=== PATIENT | female | born 2000 | race African-American/Black ===

== ENCOUNTER 2019-01-28 14:33 | Emergency (ER) | payer MEDICAID ==
[~2019-01-28] VITALS: Ht 160 cm; Wt 61.0 kg
[2019-01-28 14:44] VITALS: BP 117/87
[2019-01-28] MEDS ORDERED: ACETAMINOPHEN 325MG TABLET PO STA (17:05)
[2019-01-28 17:36] LABS: CLARITY URINE CLOUDY (CLEAR); COLOR URINE YELLOW (YELLOW); KETONES URINE NEGATIVE (NEGATIVE); LEUKOCYTE ESTERASE URINE 3+ (NEGATIVE); NITRITE URINE NEGATIVE (NEGATIVE); OCCULT BLOOD URINE NEGATIVE (NEGATIVE); PH URINE 6.5 (4.5-8.0); PROTEIN URINE NEGATIVE (NEGATIVE); SPECIFIC GRAVITY URINE 1.015 (1.005-1.030); UROBILINOGEN URINE 0.2 E.U./dL (0.2-1.0)
== END 2019-01-28 18:42 | disposition home or self-care (01) ==
LOC: ER 14:33 → EDSEX 14:33 → ER 18:42
DX: N39.0 Urinary tract infection, site not specified (principal); R51 Headache; M79.18 Myalgia, other site
CPT/HCPCS: 81025; 87804; 99283

== ENCOUNTER 2019-03-24 10:30 | Emergency (ER) | payer MEDICAID ==
[~2019-03-24] VITALS: Ht 160 cm; Wt 67.0 kg
[2019-03-24 13:06] LABS: BASOPHILS % 0.6 % (0.0-2.0); EOSINOPHILS % 3.9 % (0.0-5.0); HEMATOCRIT. 38.5 % (36.0-48.0); HEMOGLOBIN. 13.1 g/dL (12.0-16.0); LYMPHOCYTES % 36.9 % (20.0-50.0); MEAN CORPUSCULAR HEMOGLOBIN 31.4 pg (28.0-32.0); MEAN CORPUSCULAR VOLUME 92.6 fL (81.0-99.0); MONOCYTES % 14.4 % (2.0-8.0); NEUTROPHILS % 44.2 % (40.0-76.0); PLATELET 300 x1000/uL (130-400); RED BLOOD CELL COUNT 4.16 mill/uL (4.2-5.4); RED CELL DISTRIBUTION WIDTH 13.1 % (11.6-14.6)
[2019-03-24 13:08] LABS: CHLORIDE 105 mEq/L (98-107)
[2019-03-24 13:15] LABS: HCG SCREEN NEGATIVE
[2019-03-24] MEDS ORDERED: POTASSIUM CHLORIDE 20MEQ TABLET SR PO ONE ×2 (13:15→13:30)
[2019-03-24 13:51] LABS: CLARITY URINE CLEAR (CLEAR); COLOR URINE YELLOW (YELLOW); KETONES URINE NEGATIVE (NEGATIVE); LEUKOCYTE ESTERASE URINE NEGATIVE (NEGATIVE); NITRITE URINE NEGATIVE (NEGATIVE); OCCULT BLOOD URINE NEGATIVE (NEGATIVE); PH URINE 7.5 (4.5-8.0); PROTEIN URINE NEGATIVE (NEGATIVE); SPECIFIC GRAVITY URINE 1.019 (1.005-1.030)
[2019-03-24 15:35] VITALS: BP 121/73
== END 2019-03-24 15:44 | disposition home or self-care (01) ==
LOC: ER 10:30
DX: S80.861A Insect bite (nonvenomous), right lower leg, initial encounter (principal); E87.6 Hypokalemia; W57.XXXA Bitten or stung by nonvenomous insect and other nonvenomous arthropods, initial encounter; Y93.89 Activity, other specified; Y92.89 Other specified places as the place of occurrence of the external cause; Y99.8 Other external cause status
CPT/HCPCS: 36415; 80053; 81003; 81025; 84703; 85025; 93005; 99284; Z7610

== ENCOUNTER 2021-07-04 18:37 | Emergency (ER) | payer MEDICAID ==
[~2021-07-04] VITALS: Ht 165.1 cm; Wt 75.0 kg
[2021-07-04 18:41] VITALS: BP 146/92
[2021-07-04] MEDS ORDERED: IPRATROPIUM BROMIDE (0.02%) 0.5MG/2.5ML NEB HHN ONE (21:00)
[2021-07-04] MEDS ORDERED: ALBUTEROL (0.083%) 2.5MG/3ML NEB HHN ONE (21:00)
[2021-07-04] MEDS ORDERED: PREDNISONE 20MG TABLET PO ONE (21:00)
[2021-07-04] MEDS ORDERED: ALBU90AE INH (21:02)
[2021-07-04] MEDS ORDERED: P20 MT (21:02)
== END 2021-07-04 22:00 | disposition home or self-care (01) ==
LOC: ER 18:37
DX: J45.901 Unspecified asthma with (acute) exacerbation (principal); Z20.822 Contact with and (suspected) exposure to COVID-19
CPT/HCPCS: 94640; 99283; C9803; J7512; U0003; U0005; Z7610; 94644

== ENCOUNTER 2021-08-26 15:15 | Emergency (ER) | payer MEDICAID ==
[~2021-08-26] VITALS: Ht 160 cm; Wt 69.0 kg
[~2021-08-26 15:15] MED LIST: ALBU90AE INH; P20 MT
[2021-08-26] MEDS ORDERED: ACETAMINOPHEN 325MG TABLET PO ONE (17:00)
[2021-08-26] MEDS ORDERED: SODIUM CHLORIDE 0.9% 1000ML BAG (SEPSIS BOLUS) IV ONE (17:00)
[2021-08-26] MEDS ORDERED: IBUPROFEN 400MG TABLET PO ONE (17:30)
[2021-08-26 17:37] LABS: BASOPHILS % 0.2 % (0.0-2.0); EOSINOPHILS % 0.8 % (0.0-5.0); HEMATOCRIT. 39.9 % (36.0-48.0); HEMOGLOBIN. 13.5 g/dL (12.0-16.0); LYMPHOCYTES % 11.7 % (20.0-50.0); MEAN CORPUSCULAR HEMOGLOBIN 30.8 pg (28.0-32.0); MEAN CORPUSCULAR VOLUME 91.2 fL (81.0-99.0); MEAN PLATELET VOLUME 8.1 fl (7.4-10.4); MONOCYTES % 11.2 % (2.0-8.0); NEUTROPHILS % 76.1 % (40.0-76.0); PLATELET 300 x1000/uL (130-400); RED BLOOD CELL COUNT 4.37 mill/uL (4.2-5.4); RED CELL DISTRIBUTION WIDTH 12.9 % (11.6-14.6)
[2021-08-26 17:43] LABS: CHLORIDE 106 mEq/L (98-107); CLARITY URINE CLEAR (CLEAR); COLOR URINE YELLOW (YELLOW); KETONES URINE NEGATIVE (NEGATIVE); LEUKOCYTE ESTERASE URINE NEGATIVE (NEGATIVE); NITRITE URINE NEGATIVE (NEGATIVE); OCCULT BLOOD URINE NEGATIVE (NEGATIVE); PH URINE 7.5 (4.5-8.0); PROTEIN URINE NEGATIVE (NEGATIVE); SPECIFIC GRAVITY URINE 1.023 (1.005-1.030)
[2021-08-26 17:51] LABS: HCG SCREEN NEGATIVE
[2021-08-26] MEDS ORDERED: IBUP-2028 MT (18:57)
[2021-08-26 19:32] VITALS: BP 102/57
== END 2021-08-26 19:33 | disposition home or self-care (01) ==
LOC: ER 15:15
DX: U07.1 COVID-19 (principal); J45.909 Unspecified asthma, uncomplicated; R06.02 Shortness of breath; R05.9 Cough, unspecified; R50.9 Fever, unspecified; Z79.899 Other long term (current) drug therapy
CPT/HCPCS: 36415; 71045; 80053; 81003; 83605; 84703; 85025; 87040; 87086; 87804; 93005; 96360; 99285; C9803; J7030; U0003; U0005